=== PATIENT | female | born 1980 | race Hispanic/Latino ===

== ENCOUNTER 2022-03-15 15:53 | Emergency (ER) | payer OTHER ==
[~2022-03-15] VITALS: Ht 157.5 cm; Wt 79.4 kg
[2022-03-15] MEDS ORDERED: MEDROL4 M2 PO (18:02)
== END 2022-03-15 18:01 | disposition home or self-care (01) ==
LOC: ER 16:50
DX: R05.9 Cough, unspecified (principal); Z20.822 Contact with and (suspected) exposure to COVID-19
CPT/HCPCS: 71045; 87400; U0002